=== PATIENT | male | born 1965 | race Caucasian/White ===

== ENCOUNTER 2016-07-04 12:47 | Emergency (ER) | payer OTHER ==
[2016-07-04 13:27] LABS: BILIRUBIN,URINE NEGATIVE (NEGATIVE)
[2016-07-04 13:30] LABS: BASOPHILS # (AUTO) 0.1 10^3/uL (0.0-0.1); BASOPHILS % (AUTO) 0.9 %; EOSINOPHILS # (AUTO) 0.2 10^3/uL (0.0-0.7); EOSINOPHILS % (AUTO) 1.9 %; HCT - HEMATOCRIT 39.8 % (42.0-52.0); HGB - HEMOGLOBIN 14.5 g/dL (14.0-18.0); LYMPHOCYTES # (AUTO) 2.3 10^3/uL (1.5-3.5); LYMPHOCYTES % (AUTO) 28.4 %; MEAN CORPUSCULAR HGB CONC 36.3 g/dL (32.0-36.0); MEAN CORPUSCULAR VOLUME 85.4 fL (80.0-94.0); MEAN PLATELET VOLUME 11.4 fL (7.4-11.4); MONOCYTES # (AUTO) 0.7 10^3/uL (0.0-1.0); MONOCYTES % (AUTO) 8.6 %; NEUTROPHILS # (AUTO) 4.8 10^3/uL (1.5-6.6); NEUTROPHILS % (AUTO) 60.2 %; RED BLOOD COUNT 4.66 10^6/uL (4.70-6.10); RED CELL DISTRIBUTION WIDTH 13.3 % (12.0-15.0)
[2016-07-04 13:38] LABS: ALBUMIN/GLOBULIN RATIO 1.7 (1.0-2.2); BILIRUBIN,TOTAL 0.6 mg/dL (0.2-1.0); CALCIUM 9.1 mg/dL (8.5-10.3); TOTAL PROTEIN 7.4 g/dL (6.7-8.2)
[2016-07-04 13:43] LABS: UA w/ MICROSCOPIC CHARGE YES
[2016-07-04] MEDS ORDERED: HYDROmorphone 1 MG/ML SYRINGE IVP STA ×2 (13:53→16:08)
[2016-07-04] MEDS ORDERED: ONDANSETRON 4 MG/2 ML VIAL IVP STA ×2 (13:53→16:08)
[2016-07-04] MEDS ORDERED: SODIUM CHLORIDE 0.9% 1,000 ML IV ONE (13:53)
[2016-07-04] MEDS ORDERED: KETOROLAC 60 MG/2 ML VIAL IVP STA (13:53)
[2016-07-04] MEDS ORDERED: ONDANSETRON 4 MG/2 ML VIAL ONE ×2 (13:55→16:09)
[2016-07-04] MEDS ORDERED: KETOROLAC 30 MG/ML VIAL ONE (13:55)
[2016-07-04] MEDS ORDERED: HYDROmorphone 1 MG/ML SYRINGE ONE ×2 (13:55→16:08)
[2016-07-04 14:14] LABS: UR CULTURE IF IND NOT INDICATED; WBC,URINE 0-3 /HPF (0-3)
--- NOTE | 2016-07-04 15:11 | CT Preliminary Report ---
Exam: CT Abdomen/Pelvis W/O IMPRESSION: 1. Proximal right ureter stone measuring 4 mm with mild right hydronephrosis. [facility] SITE ID: [id number]
--- NOTE | 2016-07-04 15:14 | CT Report ---
EXAM: CT ABDOMEN AND PELVIS (CT KUB) EXAM DATE: 07/04/2016 02:43 PM. CLINICAL HISTORY: Right sided abd. pain and hematuria. COMPARISONS: None. TECHNIQUE: Routine axial helical CT imaging was performed through the abdomen and pelvis without IV c ontrast. Reconstructions: Coronal and sagittal. In accordance with CT protocol optimization, one or more of the following dose reduction techniques w ere utilized for this exam: automated exposure control, adjustment of mA and/or KV based on patient s ize, or use of iterative reconstructive technique. FINDINGS: Lung Bases: Unremarkable. Right Kidney/Ureter: There is a 4 mm proximal right ureter stone with mild right hydronephrosis and p erinephric edema. No right kidney stone. Left Kidney/Ureter: No stones, hydronephrosis, or hydroureter. No perinephric fat stranding. Other Solid Organs: Noncontrast images of the solid organs are grossly unremarkable. Gallbladder/Bile Ducts: Unremarkable. Peritoneal Cavity: No free fluid, free air or oc adenopathy. Bowel is grossly unremarkable. Pelvic Organs: No bladder stones or wall thickening. Noncontrast images of the visualized pelvic orga ns are unremarkable. Vasculature: Unremarkable. Other: None. IMPRESSION: 1. Proximal right ureter stone measuring 4 mm with mild right hydronephrosis. [facility] Referring Provider Line: [phone] SITE ID: [id number]
--- NOTE | 2016-07-04 15:24 | ED Physician Documentation ---
PD HPI ABD PAIN - Stated complaint Stated Complaint: RT SIDE PX - Chief complaint Chief Complaint: Abd Pain - History obtained from History obtained from: Patient - History of Present Illness Timing - onset: Last night Timing - details: Still present Quality: Pain Location: RLQ Radiation: Right flank Associated symptoms: Nausea. No: Fever, Diarrhea, Dysuria Similar symptoms before: Has not had sx before - Additional information Additional information: The patient is an otherwise healthy male who presents with right sided abdominal pain radiating to his right groin and right flank. His pain started last night and persists this morning. He has associated nausea, but denies vomiting. He denies fever or dysuria. He reports that 2 weeks ago he had aching in his right groin, with associated vomiting 1. He denies history of similar symptoms in the past. Review of Systems Constitutional: denies: Fever Nose: denies: Congestion Throat: denies: Sore throat Cardiac: denies: Chest pain / pressure Respiratory: denies: Dyspnea, Cough GI: reports: Abdominal Pain, Nausea. denies: Vomiting, Diarrhea : denies: Dysuria, Testicular pain Musculoskeletal: reports: Back pain (right flank) Neurologic: denies: Headache PD PAST MEDICAL HISTORY - Past Medical History Cardiovascular: None Respiratory: None Neuro: None Endocrine/Autoimmune: None GI: None Psych: Depression, Anxiety, Bipolar disorder - Past Surgical History Past Surgical History: Yes Derm: Skin cancer surgery - Present Medications Home Medications: Ambulatory Orders Medication Instructions Recorded Confirmed Bupropion HCl [Wellbutrin] 300 mg PO DAILY 05/29/15 07/04/16 Carbidopa/Levodopa 1 tab PO DAILY 05/29/15 07/04/16 [Carbidopa-Levodopa 10-100 Tab] Prazosin [Minipress] 4 mg PO DAILY 05/29/15 07/04/16 Propranolol [Inderal] 60 mg PO BID 05/29/15 07/04/16 Promethazine [Phenergan] 25 - 50 mg PO Q6H PRN #10 tab 07/04/16 Tamsulosin [Flomax] 0.4 mg PO DAILY #7 capsule 07/04/16 oxyCODONE/ACET 5/325 [Percocet 5 1 - 2 tab PO Q4-6H PRN #30 tablet 07/04/16 mg/325 mg] traZODone [Desyrel] 150 mg PO DAILY 07/04/16 07/04/16 - Allergies Allergies/Adverse Reactions: Allergies Allergy/AdvReac Type Severity Reaction Status Date / Time No Known Drug Allergies Allergy Verified 07/04/16 12:53 - Social History Does the pt smoke?: No Smoking Status: Former smoker PD ED PE NORMAL - Vitals Vital signs reviewed: Yes (Borderline hypertension initially.) - General General: Alert and oriented X 3, Well developed/nourished - HEENT HEENT: Atraumatic, EOMI, Pharynx benign - Neck Neck: No JVD - Cardiac Cardiac: RRR, No murmur - Respiratory Respiratory: No respiratory distress, Clear bilaterally - Abdomen Abdomen: Normal bowel sounds, Soft, Non tender, No organomegaly - Male Male : Other (Normal genitalia exam, with no scrotal swelling or inguinal mass or tenderness.) - Back Back: Other (Right CVA tenderness to percussion.) - Derm Derm: No rash - Extremities Extremities: No edema - Neuro Neuro: Alert and oriented X 3, No motor deficit, Normal speech Results - Vitals Vitals: Vital Signs - 24 hr 07/04/16 07/04/16 07/04/16 12:50 14:30 16:00 Temperature 36.5 C 36.5 C Heart Rate 54 L 78 78 Respiratory 19 14 12 Rate Blood Pressure 132/82 H 111/78 114/63 O2 Saturation 99 100 99 07/04/16 16:30 Temperature Heart Rate 75 Respiratory 14 Rate Blood Pressure 132/74 H O2 Saturation 100 Oxygen O2 Source Room air - Labs Labs: Laboratory Tests 07/04/16 07/04/16 07/04/16 13:11 13:20 13:20 WBC 8.0 RBC 4.66 L Hgb 14.5 Hct 39.8 L MCV 85.4 MCH 31.0 MCHC 36.3 H RDW 13.3 Plt Count 131 MPV 11.4 Neut # 4.8 Lymph # 2.3 Otero # 0.7 Eos # 0.2 Baso # 0.1 Absolute Nucleated RBC 0.00 Nucleated RBCs 0.0 Sodium 137 Potassium 4.0 Chloride 106 Carbon Dioxide 21 Anion Gap 10.0 BUN 19 Creatinine 1.0 Estimated GFR (MDRD) 80 L Glucose 133 H Calcium 9.1 Total Bilirubin 0.6 AST 17 ALT 21 Alkaline Phosphatase 53 Total Protein 7.4 Albumin 4.7 Globulin 2.7 Albumin/Globulin Ratio 1.7 Lipase 22 Urine Color YELLOW Urine Clarity CLEAR Urine pH 6.0 Ur Specific Brewster >=1.030 H Urine Protein 30 H Urine Glucose (UA) NEGATIVE Urine Ketones NEGATIVE Urine Occult Blood LARGE H Urine Nitrite NEGATIVE Urine Bilirubin NEGATIVE Urine Urobilinogen 0.2 (NORMAL) Ur Leukocyte Esterase NEGATIVE Urine RBC TNTC H Urine WBC 0-3 Ur Squamous Epith Cells RARE Squamous Urine Bacteria Rare Ur Microscopic Review INDICATED Urine Culture Comments NOT INDICATED - Rads (name of study) ct abd/pelvis Radiology: Prelim report reviewed, EMP read contemporaneously, See rad report ( Proximal right ureter stone measuring 4 mm with mild right hydronephrosis.) PD MEDICAL DECISION MAKING - ED course Complexity details: reviewed results, re-evaluated patient, considered differential, d/w patient, d/w family ED course: The patient's presentation is significant for renal colic with a 4 mm proximal ureteral stone detected on CT scan. There is no evidence of pyelonephritis. Treatment in the emergency department included administration of normal saline 1 L IV, ketorolac 30 mg IV, hydromorphone 1 mg IV 2, and ondansetron 4 mg IV 2. His symptoms completely resolved with the above treatment. I discussed with him and his the results of the CT scan, the importance of outpatient follow-up, as well as potentially worrisome signs or symptoms that should prompt reevaluation in the emergency department. He is being discharged with prescriptions for Percocet, Flomax, and Phenergan. Departure - Departure Disposition: 01 Home, Self Care Clinical Impression: Renal colic, Calculus of proximal right ureter Condition: Stable Instructions: ED Stone Renal W Colic Follow-Up: [facility] [Provider Group] Prescriptions: Tamsulosin [Flomax] 0.4 mg PO DAILY #7 capsule oxyCODONE/ACET 5/325 [Percocet 5 mg/325 mg] 1 - 2 tab PO Q4-6H PRN #30 tablet PRN Reason: Pain Promethazine [Phenergan] 25 - 50 mg PO Q6H PRN #10 tab PRN Reason: Nausea / Vomiting Comments: Drink plenty of fluids. Use ibuprofen, up to 800 mg 3 times daily. You can use Percocet as prescribed if needed for pain. Take Flomax daily as prescribed. You can use Phenergan as prescribed if needed for nausea. Follow up with your primary physician within one week. Call to schedule an appointment. Return to the emergency department if you develop increasing pain despite the pain medication, persistent vomiting, fever, or otherwise worsening symptoms. Discharge Date/Time: 07/04/16 16:30
[2016-07-04 16:35] VITALS: BP 132/74
== END 2016-07-04 16:30 | disposition home or self-care (01) ==
LOC: ED 12:47
DX: N13.2 Hydronephrosis with renal and ureteral calculous obstruction (principal); Z85.828 Personal history of other malignant neoplasm of skin; Z87.891 Personal history of nicotine dependence
CPT/HCPCS: 36415; 74176; 80053; 81001; 83690; 85025; 96361; 96374; 96375; 96376; 99284; J1170; 81003; 87086